=== PATIENT | female | born 1990 | race African-American/Black ===

== ENCOUNTER 2017-08-14 04:44 | Emergency (ER) | payer MEDICAID ==
[~2017-08-14] VITALS: Ht 165.1 cm; Wt 72.6 kg
[2017-08-14 05:49] LABS: Basophils # (auto) 0 uL; Basophils % (auto) 0.6 % (0.0-2.0); Eosinophils # (auto) 0.1 uL; Eosinophils % (auto) 1.3 % (0.0-7.0); Hematocrit 44.7 % (36.0-46.0); Hemoglobin 14.7 g/dL (12.2-16.2); Lymphocytes # (auto) 1.9 uL; Lymphocytes % (auto) 36.6 % (10.0-50.0); Mean Corpuscular Hemoglobin 31.4 pg (28.0-32.0); Mean Corpuscular Hgb Conc. 32.9 g/dL (32.0-36.0); Mean Corpuscular Volume 95.5 fL (80.0-100.0); Monocytes # (auto) 0.4 uL; Monocytes % (auto) 8.2 % (0.0-12.0); Neutrophils # (auto) 2.7 uL; Neutrophils % (auto) 53.3 % (37.0-80.0); Nucleated Red Blood Cells % 0.1 %; Platelet Count (auto) 369 10^3/uL (140-450); Red Blood Cells 4.67 10^6/uL (4.0-5.20); Red Cell Distribution Width 13.7 % (11.8-14.3); White Blood Cell 5.1 10^3/uL (4.4-10.8)
[2017-08-14 05:50] LABS: Urine Bacteria NONE SEEN /hpf (None Seen); Urine Blood 3+ /uL (Negative); Urine Specific Gravity 1.009 (1.001-1.035); Urine WBC 8 /hpf (0 - 5)
[2017-08-14 06:09] LABS: Albumin 3.7 g/dL (3.4-5.0); Anion Gap 9 (5-15); BUN/Creatinine Ratio 7.8; Blood Urea Nitrogen 7 mg/dL (7-18); Calcium 8.5 mg/dL (8.5-10.1); Carbon Dioxide 22 mmol/L (21-32); Chloride 109 mmol/L (98-107); GFR African American 96 mL/min; GFR Non-African American 79 mL/min; Glucose 106 mg/dL (74-106); Magnesium 2.3 mg/dL (1.6-2.6); Potassium 4.4 mmol/L (3.5-5.1); Sodium 140 mmol/L (136-145)
[2017-08-14 06:14] LABS: Alanine Aminotransferase 16 U/L (13-56); Alkaline Phosphatase 53 U/L (45-117); Aspartate Aminotransferase 17 U/L (15-37); Bilirubin, Total 0.6 mg/dL (0.2-1.0); Total Protein 7.6 g/dL (6.4-8.2)
[2017-08-14 06:16] LABS: Alcohol, Urine < 3.0 mg/dL (0-5); Amphetamine Screen, Urine NEGATIVE (NEGATIVE); Barbiturate Scree,Urine NEGATIVE (NEGATIVE); Benzodiazephine Screen, Urine NEGATIVE (NEGATIVE); Cannabinoid Screen, Urine POSITIVE (NEGATIVE); Cocaine Screen, Urine NEGATIVE (NEGATIVE); Opiate Scree,Urine NEGATIVE (NEGATIVE); Phencyclidine Screen, Urine NEGATIVE (NEGATIVE)
[2017-08-14 06:23] LABS: Beta HCG, Quantitative < 1 mlU/mL (1-3); Thyroid Stimulating Hormone 1.14 uIU/mL (0.358-3.74)
[2017-08-14 07:57] VITALS: BP 140/87
[2017-08-14] MEDS ORDERED: MECLIZINE HCL 25 MG TAB PO ONE (08:15)
== END 2017-08-14 08:52 | disposition home or self-care (01) ==
LOC: ER 04:44
DX: R42 Dizziness and giddiness (principal); N39.0 Urinary tract infection, site not specified; R51 Headache
CPT/HCPCS: 36415; 70450; 80053; 80307; 81001; 82962; 83735; 84443; 84484; 84702; 85025; 93005; 99285; J8597

== ENCOUNTER 2017-08-15 15:53 | Emergency (ER) | payer MEDICAID ==
[~2017-08-15] VITALS: Ht 165.1 cm; Wt 72.6 kg
[2017-08-15] MEDS ORDERED: MECLIZINE HCL 25 MG TAB PO ONE (16:30)
[2017-08-15 16:31] LABS: Basophils # (auto) 0.1 uL; Basophils % (auto) 1.4 % (0.0-2.0); Eosinophils # (auto) 0 uL; Eosinophils % (auto) 0.9 % (0.0-7.0); Hematocrit 46.2 % (36.0-46.0); Hemoglobin 15.6 g/dL (12.2-16.2); Lymphocytes # (auto) 2.8 uL; Lymphocytes % (auto) 50.7 % (10.0-50.0); Mean Corpuscular Hgb Conc. 33.7 g/dL (32.0-36.0); Monocytes # (auto) 0.6 uL; Monocytes % (auto) 11.7 % (0.0-12.0); Neutrophils # (auto) 1.9 uL; Neutrophils % (auto) 35.3 % (37.0-80.0); Nucleated Red Blood Cells % 0.1 %; Platelet Count (auto) 384 10^3/uL (140-450); Red Blood Cells 4.86 10^6/uL (4.0-5.20); Red Cell Distribution Width 13.8 % (11.8-14.3); White Blood Cell 5.5 10^3/uL (4.4-10.8)
[2017-08-15 16:51] LABS: Anion Gap 8 (5-15); Blood Urea Nitrogen 9 mg/dL (7-18); Carbon Dioxide 26 mmol/L (21-32); Chloride 107 mmol/L (98-107); Glucose 90 mg/dL (74-106); Potassium 3.6 mmol/L (3.5-5.1); Sodium 141 mmol/L (136-145)
[2017-08-15 16:52] LABS: Alanine Aminotransferase 15 U/L (13-56); Albumin 3.9 g/dL (3.4-5.0); Alkaline Phosphatase 57 U/L (45-117); Aspartate Aminotransferase 19 U/L (15-37); BUN/Creatinine Ratio 8.8; Calcium 8.8 mg/dL (8.5-10.1); GFR African American 83 mL/min; GFR Non-African American 69 mL/min; Total Protein 8.3 g/dL (6.4-8.2)
[2017-08-15 18:28] LABS: Urine Bacteria FEW /hpf (None Seen); Urine Blood 3+ /uL (Negative); Urine Mucus FEW (None Seen); Urine Specific Gravity 1.026 (1.001-1.035); Urine WBC 15 /hpf (0 - 5)
[2017-08-15 18:36] LABS: Amphetamine Screen, Urine NEGATIVE (NEGATIVE); Barbiturate Scree,Urine NEGATIVE (NEGATIVE); Benzodiazephine Screen, Urine NEGATIVE (NEGATIVE); Cannabinoid Screen, Urine POSITIVE (NEGATIVE); Cocaine Screen, Urine NEGATIVE (NEGATIVE); Opiate Scree,Urine NEGATIVE (NEGATIVE); Phencyclidine Screen, Urine NEGATIVE (NEGATIVE)
[2017-08-15 21:00] VITALS: BP 147/98
== END 2017-08-15 21:33 | disposition home or self-care (01) ==
LOC: ER 15:53
DX: R42 Dizziness and giddiness (principal)
CPT/HCPCS: 36415; 80053; 80307; 81001; 84484; 85025; 99284; J8597